=== PATIENT | female | born 1990 | race Caucasian/White ===

== ENCOUNTER → 2018-01-03 | Emergency (ER) | payer OTHER ==
[~2018-01-03] MED LIST: PREDNISONE10 MG PO
== END | disposition home or self-care (01) ==
LOC: ER 16:04
DX: R14.3 Flatulence (principal)

== ENCOUNTER 2018-08-27 12:53 | Emergency (ER) | payer OTHER ==
[~2018-08-27] VITALS: Ht 160 cm; Wt 59.0 kg
[2018-08-27] MEDS ORDERED: [UNRECOGNIZED DRUG - OTHER] (13:20)
[2018-08-27] MEDS ORDERED: EMTRIVA200 MG (13:21)
[2018-08-27] MEDS ORDERED: SELZENTRY300 MG (13:21)
== END 2018-08-27 18:59 | disposition home or self-care (01) ==
LOC: ER 12:53
DX: S60.212A Contusion of left wrist, initial encounter (principal); W18.09XA Striking against other object with subsequent fall, initial encounter; Y93.89 Activity, other specified; Y92.89 Other specified places as the place of occurrence of the external cause; Y99.8 Other external cause status